=== PATIENT | female | born 1935 | race Caucasian/White ===

== ENCOUNTER 2020-11-15 14:38 | Inpatient (IN) ==
[2020-11-15] MEDS ORDERED: *HR* Atropine Sulfate 1 MG/10 ML SYRINGE IVP ONE (15:09)
[2020-11-15 15:26] LABS: Basophils # 0.1 K/mcL (0.0-0.2); Eosinophils # 0.3 K/mcL (0.0-0.6); Eosinophils % 3.3 %; Hematocrit 33.9 % (35.3-44.9); Hemoglobin 10.8 g/dL (11.5-15.4); Immature Granulocytes % 0.3 % (0-4); Lymphocytes # 1.7 K/mcL (0.6-4.6); Lymphocytes % 22.4 %; Mean Corpuscular HGB Conc 31.9 g/dL (31.6-35.5); Mean Corpuscular Hemoglobin 34.4 pg (28.0-33.3); Monocytes # 0.8 K/mcL (0.0-1.3); Monocytes % 10.1 %; Neutrophils # 4.8 K/mcL (1.6-8.9); Platelet Count 189 K/mcL (140-400); Red Blood Count 3.14 M/mcL (3.82-4.97); Red Cell Distribution Width 14.3 % (11.5-14.5); Segmented Neutrophils % 62.9 %; White Blood Count 7.7 K/mcL (4.3-11.1)
[2020-11-15] MEDS ORDERED: Ondansetron 4 MG/2 ML VIAL ONE (15:28)
[2020-11-15 15:46] LABS: Calcium 9.6 mg/dL (8.6-10.3); Magnesium 2.5 mg/dL (1.6-2.6); Potassium 4.6 mEq/L (3.5-5.1)
[2020-11-15 15:47] LABS: Troponin I 0.03 ng/mL (< 0.04)
[2020-11-15] MEDS ORDERED: Perflutren Lipid Microsphere 1.3 ML in 0.9 % Sodium Chloride 8.7 ML IVP PRN (15:49)
[2020-11-15 16:00] LABS: Thyroid Stimulating Hormone 3.678 mcIU/mL (0.340-5.600)
[2020-11-15 16:43] LABS: Prothrombin Time 11.4 Seconds (9.4-12.1)
[2020-11-15 16:46] LABS: Activated Partial Thrombo Time 29.2 Seconds (26.0-36.0)
[2020-11-15] MEDS ORDERED: Ringers Solution, Lactated 1,000 ML ONE (17:35)
[2020-11-15] MEDS ORDERED: Calcium Gluconate 1gm/50mL BAG IVPB ONE (17:45)
[2020-11-15] MEDS ORDERED: Ipratropium/Albuterol Neb 3 ML IH PRN (17:47)
[2020-11-15] MEDS ORDERED: Ondansetron 4 MG/2 ML VIAL IVP PRN (17:48)
[2020-11-15] MEDS ORDERED: Naloxone 0.4 MG/ML INJ IVP PRN ×2 (17:48→18:28)
[2020-11-15] MEDS ORDERED: Melatonin 3 MG TABLET PO PRN (17:48)
[2020-11-15] MEDS ORDERED: Acetaminophen 325 MG TABLET PO PRN (17:48)
[2020-11-15] MEDS ORDERED: *HR* OxyCODONE Immed Rel 5 MG TABLET PO PRN (17:48)
[2020-11-15] MEDS ORDERED: *HR* HYDROcodone/Acet 5/325 mg TABLET PO PRN (17:48)
[2020-11-15 18:09] LABS: ABG Base Excess -3 mEq/L (-2 to 3); ABG HCO3 23 mEq/L (21-27); ABG Oxygen Saturation 86 % (95-98); ABG PCO2 42 mmHg (35-45); ABG PH 7.34 pH Units (7.32-7.45); ABG PO2 55 mmHg (85-104); ABG TCO2 24 mEq/L (20-26)
[2020-11-15] MEDS ORDERED: Ringers Solution, Lactated 1,000 ML IVC SCH ×2 (18:30→21:00)
[2020-11-15] MEDS: Aspirin 325 MG TABLET PO SCH (19:39)
[2020-11-15] MEDS: levETIRAcetam 250 MG TABLET PO SCH (19:39)
[2020-11-15 20:36] LABS: Adenovirus Not Detected (Not Detect); Bordetella Pertussis Not Detected (Not Detect); Chlamydophila pneumoniae Not Detected (Not Detect); Coronavirus 229E Not Detected (Not Detect); Coronavirus HKU1 Not Detected (Not Detect); Coronavirus NL63 Not Detected (Not Detect); Coronavirus OC43 Not Detected (Not Detect); Human Metapneumovirus Not Detected (Not Detect); Human Rhinovirus/Enterovirus Not Detected (Not Detect); Influenza A Subtype 2009 H1 Not Detected (Not Detect); Influenza B Not Detected (Not Detect); Mycoplasma pneumoniae Not Detected (Not Detect); Parainfluenza Virus 1 Not Detected (Not Detect); Parainfluenza Virus 2 Not Detected (Not Detect); Parainfluenza Virus 3 Not Detected (Not Detect); Parainfluenza Virus 4 Not Detected (Not Detect); Respiratory Syncytial Virus Not Detected (Not Detect); SARS-CoV-2 Not Detected (Not Detect)
[2020-11-15] MEDS ORDERED: levETIRAcetam 250 MG TABLET PO SCH (21:00)
[2020-11-15 21:28] LABS: VBG Ionized Calcium 1.24 mmol/L (1.15-1.35)
[2020-11-15 21:46] LABS: Bacteria,Urine Few per hpf (None-Few); Bilirubin,Urine Negative (Negative); Blood,Urine Negative (Negative); Clarity,Urine Turbid (Clear); Color,Urine Yellow (Yellow); Glucose,Urine (UA) Normal (Normal); Hyaline Casts,Urine Moderate per lpf (None Seen); Ketones,Urine Negative (Negative); Leukocyte Esterase,Urine Negative (Negative); Mucus,Urine Few per lpf (None-Few); Nitrite,Urine Negative (Negative); Protein,Urine 30 mg/dL (Neg-Trace); RBC,Urine 0-3 per hpf (0-3); Specific Gravity,Urine 1.024 (1.010-1.025); Squamous Epithelial Cell,Urine Many per hpf (None-Few); Urobilinogen,Urine Normal (Normal); WBC,Urine 0-3 per hpf (0-3)
[2020-11-15] MEDS: Ipratropium/Albuterol Neb 3 ML IH SCH (22:17)
[2020-11-16] MEDS: Ipratropium/Albuterol Neb 3 ML IH SCH ×4 (04:53→21:10)
[2020-11-16] MEDS: levETIRAcetam 250 MG TABLET PO SCH ×2 (05:05→17:28)
[2020-11-16 05:48] LABS: Basophils # 0.1 K/mcL (0.0-0.2); Basophils % 0.5 %; Eosinophils # 0.2 K/mcL (0.0-0.6); Eosinophils % 1.8 %; Hematocrit 35.8 % (35.3-44.9); Hemoglobin 11.3 g/dL (11.5-15.4); Immature Granulocytes % 0.5 % (0-4); Lymphocytes # 1.5 K/mcL (0.6-4.6); Lymphocytes % 15.8 %; Mean Corpuscular HGB Conc 31.6 g/dL (31.6-35.5); Mean Corpuscular Hemoglobin 33.6 pg (28.0-33.3); Mean Corpuscular Volume 106.5 fL (83.0-100.0); Mean Platelet Volume 11.9 fL (9.4-12.4); Monocytes # 1.1 K/mcL (0.0-1.3); Monocytes % 11.9 %; Neutrophils # 6.5 K/mcL (1.6-8.9); Platelet Count 142 K/mcL (140-400); Red Blood Count 3.36 M/mcL (3.82-4.97); Red Cell Distribution Width 13.8 % (11.5-14.5); Segmented Neutrophils % 69.5 %; White Blood Count 9.4 K/mcL (4.3-11.1)
[2020-11-16 05:51] LABS: VBG Ionized Calcium 1.15 mmol/L (1.15-1.35)
[2020-11-16 05:57] LABS: Prothrombin Time 11.4 Seconds (9.4-12.1)
[2020-11-16 06:08] LABS: Albumin 3.7 g/dL (3.5-5.7); Albumin/Globulin Ratio 1.6 (1.1-2.2); Bilirubin,Total 0.5 mg/dL (0.3-1.0); Calcium 9.2 mg/dL (8.6-10.3); Globulin 2.3 g/dL (2.4-3.5); Magnesium 2.3 mg/dL (1.6-2.6); Phosphorous 4.4 mg/dL (2.7-4.5)
[2020-11-16 06:10] LABS: % Iron Saturation 38 % (15-50); Iron 115 mcg/dL (50-170); Transferrin 217 mg/dL (203-362)
[2020-11-16 06:24] LABS: Folate > 22.3 ng/mL (3.0-16.0); Vitamin B12 841 pg/mL (250-1100)
[2020-11-16 06:27] LABS: Ferritin 59 ng/mL (10-120)
[2020-11-16] MEDS ORDERED: Cholecalciferol (D-3) 1,000 UNIT (25MCG) TABLET PO SCH (09:00)
[2020-11-16] MEDS ORDERED: Niacin (24 HR) 500 MG TAB.ER.24H PO SCH (09:00)
[2020-11-16] MEDS ORDERED: Multivit/Ca/Min/Fe/FA 1 TAB TABLET PO SCH (09:00)
[2020-11-16] MEDS: Aspirin 325 MG TABLET PO SCH ×2 (09:04→20:05)
[2020-11-16 13:28] LABS: VBG Ionized Calcium 1.21 mmol/L (1.15-1.35)
[2020-11-16 13:45] LABS: Calcium 9.1 mg/dL (8.6-10.3); Magnesium 2.3 mg/dL (1.6-2.6); Potassium 4.4 mEq/L (3.5-5.1)
[2020-11-16] MEDS ORDERED: *HR* Heparin 5,000 UNIT/ML VIAL SQ SCH (14:00)
[2020-11-16] MEDS: hydrALAZINE 25 MG TABLET PO SCH ×3 (15:08→23:59)
[2020-11-16] MEDS ORDERED: Melatonin 3 MG TABLET PO PRN (18:30)
[2020-11-16] MEDS ORDERED: Ondansetron 4 MG/2 ML VIAL IVP PRN (18:30)
[2020-11-16] MEDS ORDERED: Acetaminophen 325 MG TABLET PO PRN (18:30)
[2020-11-16] MEDS ORDERED: *HR* OxyCODONE Immed Rel 5 MG TABLET PO PRN (18:30)
[2020-11-16] MEDS ORDERED: *HR* HYDROcodone/Acet 5/325 mg TABLET PO PRN (18:30)
[2020-11-16] MEDS ORDERED: Naloxone 0.4 MG/ML INJ IVP PRN (18:30)
[2020-11-16] MEDS ORDERED: Ipratropium/Albuterol Neb 3 ML IH PRN (18:30)
[2020-11-16] MEDS: Pregabalin 25 MG CAPSULE PO SCH (20:05)
[2020-11-16] MEDS: *HR* Heparin 5,000 UNIT/ML VIAL SQ SCH (21:01)
[2020-11-17 02:01] LABS: Basophils # 0.1 K/mcL (0.0-0.2); Basophils % 0.9 %; Eosinophils # 0.3 K/mcL (0.0-0.6); Eosinophils % 4.3 %; Hematocrit 31.5 % (35.3-44.9); Immature Granulocytes % 0.9 % (0-4); Lymphocytes % 13.8 %; Mean Corpuscular HGB Conc 31.7 g/dL (31.6-35.5); Mean Corpuscular Hemoglobin 33.9 pg (28.0-33.3); Mean Corpuscular Volume 106.8 fL (83.0-100.0); Mean Platelet Volume 10.8 fL (9.4-12.4); Monocytes # 0.6 K/mcL (0.0-1.3); Monocytes % 9.1 %; Platelet Count 153 K/mcL (140-400); Red Blood Count 2.95 M/mcL (3.82-4.97); Red Cell Distribution Width 13.9 % (11.5-14.5)
[2020-11-17 02:10] LABS: VBG Ionized Calcium 1.19 mmol/L (1.15-1.35)
[2020-11-17 02:21] LABS: Albumin 3.4 g/dL (3.5-5.7); Albumin/Globulin Ratio 1.6 (1.1-2.2); Bilirubin,Total 0.3 mg/dL (0.3-1.0); Calcium 8.8 mg/dL (8.6-10.3); Globulin 2.1 g/dL (2.4-3.5); Magnesium 2.2 mg/dL (1.6-2.6); Potassium 4.2 mEq/L (3.5-5.1); Total Protein 5.5 g/dL (6.4-8.9)
[2020-11-17] MEDS: Ipratropium/Albuterol Neb 3 ML IH SCH ×4 (03:22→21:48)
[2020-11-17] MEDS: *HR* Heparin 5,000 UNIT/ML VIAL SQ SCH ×3 (06:12→22:34)
[2020-11-17] MEDS: levETIRAcetam 250 MG TABLET PO SCH ×2 (06:12→16:51)
[2020-11-17] MEDS: Cholecalciferol (D-3) 1,000 UNIT (25MCG) TABLET PO SCH (08:04)
[2020-11-17] MEDS: Pregabalin 25 MG CAPSULE PO SCH ×2 (08:04→22:33)
[2020-11-17] MEDS: Multivit/Ca/Min/Fe/FA 1 TAB TABLET PO SCH (08:04)
[2020-11-17] MEDS: Aspirin 325 MG TABLET PO SCH ×2 (08:05→22:34)
[2020-11-17] MEDS: hydrALAZINE 25 MG TABLET PO SCH ×2 (08:05→16:51)
[2020-11-17] MEDS: Niacin (24 HR) 500 MG TAB.ER.24H PO SCH (08:05)
[2020-11-17] MEDS ORDERED: Furosemide 20 MG/2 ML VIAL IVP ONE (11:45)
[2020-11-17] MEDS: amLODIPine 5 MG TABLET PO SCH (11:46)
[2020-11-18] MEDS: hydrALAZINE 25 MG TABLET PO SCH ×2 (00:02→08:30)
[2020-11-18] MEDS: Ipratropium/Albuterol Neb 3 ML IH SCH ×2 (03:51→10:33)
[2020-11-18] MEDS: *HR* Heparin 5,000 UNIT/ML VIAL SQ SCH (06:07)
[2020-11-18] MEDS: levETIRAcetam 250 MG TABLET PO SCH (06:07)
[2020-11-18 07:04] LABS: VBG Ionized Calcium 1.18 mmol/L (1.15-1.35)
[2020-11-18 07:09] LABS: Basophils # 0.1 K/mcL (0.0-0.2); Eosinophils # 0.4 K/mcL (0.0-0.6); Hemoglobin 10.5 g/dL (11.5-15.4); Immature Granulocytes % 0.4 % (0-4); Lymphocytes # 0.8 K/mcL (0.6-4.6); Lymphocytes % 16.6 %; Mean Corpuscular HGB Conc 32.8 g/dL (31.6-35.5); Mean Corpuscular Hemoglobin 34.7 pg (28.0-33.3); Mean Corpuscular Volume 105.6 fL (83.0-100.0); Mean Platelet Volume 11.2 fL (9.4-12.4); Monocytes # 0.6 K/mcL (0.0-1.3); Monocytes % 11.8 %; Neutrophils # 3.2 K/mcL (1.6-8.9); Platelet Count 182 K/mcL (140-400); Red Blood Count 3.03 M/mcL (3.82-4.97); Red Cell Distribution Width 13.8 % (11.5-14.5); Segmented Neutrophils % 63.2 %
[2020-11-18 07:50] LABS: Albumin 3.3 g/dL (3.5-5.7); Albumin/Globulin Ratio 1.4 (1.1-2.2); Bilirubin,Total 0.4 mg/dL (0.3-1.0); Calcium 8.5 mg/dL (8.6-10.3); Globulin 2.3 g/dL (2.4-3.5); Phosphorous 2.9 mg/dL (2.7-4.5); Potassium 4.1 mEq/L (3.5-5.1); Total Protein 5.6 g/dL (6.4-8.9)
[2020-11-18] MEDS: Cholecalciferol (D-3) 1,000 UNIT (25MCG) TABLET PO SCH (08:30)
[2020-11-18] MEDS: Pregabalin 25 MG CAPSULE PO SCH (08:30)
[2020-11-18] MEDS: amLODIPine 5 MG TABLET PO SCH (08:30)
[2020-11-18] MEDS: Multivit/Ca/Min/Fe/FA 1 TAB TABLET PO SCH (08:30)
[2020-11-18] MEDS: Niacin (24 HR) 500 MG TAB.ER.24H PO SCH (08:31)
[2020-11-18] MEDS: Aspirin 325 MG TABLET PO SCH (08:31)
[2020-11-18 10:42] VITALS: BP 168/68
== END 2020-11-18 13:43 | disposition home or self-care (01) | DRG 308 ==
LOC: SUATTDRO → EMEROOARM 14:38 → SUATTDRO 18:07 → 2NNU 18:07 → ICNU 18:18 → 2NENU 11-16 22:44
PROVIDERS: ADMIT Internal Medicine; ATTEND Internal Medicine

== ENCOUNTER 2022-01-25 17:18 | Inpatient (IN) ==
[2022-01-25 18:05] LABS: Basophils # 0.1 K/mcL (0.0-0.2); Basophils % 0.6 %; Eosinophils # 0.2 K/mcL (0.0-0.6); Eosinophils % 2.8 %; Hematocrit 37.9 % (35.3-44.9); Hemoglobin 12.4 g/dL (11.5-15.4); Immature Granulocytes % 0.4 % (0-4); Lymphocytes # 1.4 K/mcL (0.6-4.6); Lymphocytes % 16.4 %; Mean Corpuscular HGB Conc 32.7 g/dL (31.6-35.5); Mean Corpuscular Hemoglobin 32.6 pg (28.0-33.3); Mean Corpuscular Volume 99.7 fL (83.0-100.0); Mean Platelet Volume 10.9 fL (9.4-12.4); Monocytes # 0.7 K/mcL (0.0-1.3); Neutrophils # 5.8 K/mcL (1.6-8.9); Platelet Count 228 K/mcL (140-400); Red Cell Distribution Width 13.6 % (11.5-14.5); Segmented Neutrophils % 70.8 %; White Blood Count 8.2 K/mcL (4.3-11.1)
[2022-01-25] MEDS ORDERED: Dexamethasone Sodium Phos/PF 10 MG/ML VIAL IVP ONE (18:15)
[2022-01-25 18:55] LABS: BUN/Creatinine Ratio 18 (6-26); Blood Urea Nitrogen 25 mg/dL (8-23); Calcium 9.9 mg/dL (8.6-10.3); Carbon Dioxide 28 mEq/L (23-29); Chloride 104 mEq/L (98-107); Glucose 124 mg/dL (70-105); Osmolality,Calculated 300 (280-300); Potassium 4.1 mEq/L (3.5-5.1); Sodium 142 mEq/L (136-145); Troponin I < 0.03 ng/mL (< 0.04)
[2022-01-25] MEDS ORDERED: *HR* Labetalol 20 MG/4 ML SYRINGE IVP ONE (19:48)
[2022-01-25] MEDS ORDERED: Acetaminophen 325 MG TABLET PO PRN (20:14)
[2022-01-25] MEDS ORDERED: Naloxone 0.4 MG/ML INJ IVP PRN (20:14)
[2022-01-25] MEDS ORDERED: Ondansetron 4 MG/2 ML VIAL IVP PRN (20:14)
[2022-01-25] MEDS ORDERED: Pregabalin 25 MG CAPSULE PO ONE (21:09)
[2022-01-25 21:41] LABS: Bilirubin,Urine Negative (Negative); Blood,Urine Negative (Negative); Clarity,Urine Clear (Clear); Color,Urine Yellow (Yellow); Glucose,Urine (UA) Normal (Normal); Ketones,Urine Negative (Negative); Leukocyte Esterase,Urine Negative (Negative); Nitrite,Urine Negative (Negative); PH,Urine 6.5 pH Units (5.0-8.0); Protein,Urine Trace mg/dL (Neg-Trace); Specific Gravity,Urine 1.016 (1.010-1.025); Urobilinogen,Urine Normal (Normal)
[2022-01-25] MEDS: Ipratropium 1 PUFF INHALER IH SCH (22:36)
[2022-01-25] MEDS: *HR* Heparin 5,000 UNIT/ML VIAL SQ SCH (22:46)
[2022-01-25] MEDS: levETIRAcetam 250 MG TABLET PO SCH (22:46)
[2022-01-25] MEDS: Aspirin 81 MG TAB.CHEW PO SCH (22:54)
[2022-01-26] MEDS: niCARdipine 20 MG/200 ML MLS IVC SCH ×7 (00:33→23:04)
[2022-01-26 02:33] LABS: VBG HCO3 25 mEq/L (21-27); VBG PCO2 33 mmHg (41-51); VBG PH 7.48 pH Units (7.32-7.42); VBG PO2 144 mmHg (25-50)
[2022-01-26 02:38] LABS: Red Blood Count 3.47 M/mcL (3.82-4.97); White Blood Count 9.3 K/mcL (4.3-11.1)
[2022-01-26 02:39] LABS: Basophils % 0.3 %; Eosinophils % 0.1 %; Hemoglobin 11.3 g/dL (11.5-15.4); Immature Granulocytes % 0.6 % (0-4); Lymphocytes # 0.6 K/mcL (0.6-4.6); Lymphocytes % 6.8 %; Mean Corpuscular HGB Conc 33.2 g/dL (31.6-35.5); Mean Corpuscular Hemoglobin 32.6 pg (28.0-33.3); Mean Platelet Volume 10.8 fL (9.4-12.4); Monocytes # 0.1 K/mcL (0.0-1.3); Monocytes % 0.6 %; Neutrophils # 8.5 K/mcL (1.6-8.9); Platelet Count 235 K/mcL (140-400); Red Cell Distribution Width 13.4 % (11.5-14.5); Segmented Neutrophils % 91.6 %
[2022-01-26 03:00] LABS: Albumin 3.8 g/dL (3.5-5.7); Albumin/Globulin Ratio 1.2 (1.1-2.2); Bilirubin,Direct 0.1 mg/dL (0.0-0.2); Bilirubin,Indirect 0.2 mg/dL (0.0-1.0); Bilirubin,Total 0.3 mg/dL (0.3-1.0); Calcium 9.3 mg/dL (8.6-10.3); Globulin 3.1 g/dL (2.4-3.5); Magnesium 2.3 mg/dL (1.6-2.6); Potassium 3.5 mEq/L (3.5-5.1); Total Protein 6.9 g/dL (6.4-8.9)
[2022-01-26] MEDS: Ipratropium 1 PUFF INHALER IH SCH ×4 (04:11→21:54)
[2022-01-26] MEDS ORDERED: Remdesivir 200 MG in 0.9 % Sodium Chloride 100 ML IVPB ONE (05:00)
[2022-01-26] MEDS: *HR* Heparin 5,000 UNIT/ML VIAL SQ SCH ×3 (05:17→20:10)
[2022-01-26] MEDS: levETIRAcetam 250 MG TABLET PO SCH ×2 (07:59→20:10)
[2022-01-26] MEDS: Aspirin 81 MG TAB.CHEW PO SCH (07:59)
[2022-01-26] MEDS: Azithromycin 250 MG TABLET PO SCH (07:59)
[2022-01-26] MEDS: amLODIPine 5 MG TABLET PO SCH (07:59)
[2022-01-26] MEDS: Pregabalin 50 MG CAPSULE PO SCH (07:59)
[2022-01-26] MEDS: hydrALAZINE 25 MG TABLET PO SCH ×2 (17:22→23:43)
[2022-01-26] MEDS: Pregabalin 25 MG CAPSULE PO SCH (20:09)
[2022-01-27 03:10] LABS: Basophils % 0.2 %; Hematocrit 32.6 % (35.3-44.9); Hemoglobin 10.5 g/dL (11.5-15.4); Immature Granulocytes % 0.7 % (0-4); Lymphocytes # 0.7 K/mcL (0.6-4.6); Lymphocytes % 6.3 %; Mean Corpuscular HGB Conc 32.2 g/dL (31.6-35.5); Mean Corpuscular Volume 99.4 fL (83.0-100.0); Mean Platelet Volume 11.1 fL (9.4-12.4); Monocytes # 0.7 K/mcL (0.0-1.3); Monocytes % 6.9 %; Platelet Count 265 K/mcL (140-400); Red Blood Count 3.28 M/mcL (3.82-4.97); Red Cell Distribution Width 13.5 % (11.5-14.5); Segmented Neutrophils % 85.9 %; White Blood Count 10.5 K/mcL (4.3-11.1)
[2022-01-27 03:30] LABS: Calcium 9.4 mg/dL (8.6-10.3); Magnesium 2.5 mg/dL (1.6-2.6); Phosphorous 3.2 mg/dL (2.7-4.5); Potassium 3.6 mEq/L (3.5-5.1)
[2022-01-27 03:31] LABS: Albumin 3.5 g/dL (3.5-5.7); Albumin/Globulin Ratio 1.3 (1.1-2.2); Bilirubin,Indirect 0.3 mg/dL (0.0-1.0); Bilirubin,Total 0.3 mg/dL (0.3-1.0); Globulin 2.8 g/dL (2.4-3.5); Total Protein 6.3 g/dL (6.4-8.9)
[2022-01-27] MEDS: Ipratropium 1 PUFF INHALER IH SCH ×4 (03:49→22:41)
[2022-01-27] MEDS: Remdesivir 100 MG in 0.9 % Sodium Chloride 100 ML IVPB SCH (06:22)
[2022-01-27] MEDS: *HR* Heparin 5,000 UNIT/ML VIAL SQ SCH ×3 (06:22→20:45)
[2022-01-27] MEDS: niCARdipine 20 MG/200 ML MLS IVC SCH ×3 (07:35→13:15)
[2022-01-27] MEDS: Aspirin 81 MG TAB.CHEW PO SCH (08:24)
[2022-01-27] MEDS: Lactobacillus 1 EACH CAP.SPRINK PO SCH (08:24)
[2022-01-27] MEDS: Ascorbic Acid 500 MG TABLET PO SCH (08:25)
[2022-01-27] MEDS: Furosemide 20 MG TABLET PO SCH (08:25)
[2022-01-27] MEDS: Azithromycin 250 MG TABLET PO SCH (08:25)
[2022-01-27] MEDS: Pregabalin 50 MG CAPSULE PO SCH (08:25)
[2022-01-27] MEDS: amLODIPine 5 MG TABLET PO SCH (08:26)
[2022-01-27] MEDS: Benzonatate 100 MG CAPSULE PO PRN (08:26)
[2022-01-27] MEDS: Cholecalciferol (D-3) 1,000 UNIT (25MCG) TABLET PO SCH (08:26)
[2022-01-27] MEDS: levETIRAcetam 250 MG TABLET PO SCH ×2 (08:26→19:58)
[2022-01-27] MEDS: hydrALAZINE 25 MG TABLET PO SCH ×3 (08:27→23:56)
[2022-01-27] MEDS ORDERED: Pregabalin 25 MG CAPSULE PO SCH ×2 (09:00→21:00)
[2022-01-27] MEDS: Pregabalin 25 MG CAPSULE PO SCH (19:58)
[2022-01-28] MEDS: niCARdipine 20 MG/200 ML MLS IVC SCH ×3 (00:18→03:37)
[2022-01-28] MEDS: Ipratropium 1 PUFF INHALER IH SCH ×3 (04:21→16:01)
[2022-01-28] MEDS: Remdesivir 100 MG in 0.9 % Sodium Chloride 100 ML IVPB SCH (04:39)
[2022-01-28] MEDS: *HR* Heparin 5,000 UNIT/ML VIAL SQ SCH ×2 (04:40→13:45)
[2022-01-28 06:36] LABS: Albumin 3.4 g/dL (3.5-5.7); Albumin/Globulin Ratio 1.4 (1.1-2.2); Bilirubin,Direct 0.1 mg/dL (0.0-0.2); Bilirubin,Indirect 0.1 mg/dL (0.0-1.0); Bilirubin,Total 0.2 mg/dL (0.3-1.0); Globulin 2.4 g/dL (2.4-3.5); Magnesium 2.3 mg/dL (1.6-2.6); Phosphorous 4.1 mg/dL (2.7-4.5); Potassium 4.1 mEq/L (3.5-5.1); Total Protein 5.8 g/dL (6.4-8.9)
[2022-01-28 07:44] VITALS: O2SAT 94
[2022-01-28] MEDS: levETIRAcetam 250 MG TABLET PO SCH (08:39)
[2022-01-28] MEDS: Azithromycin 250 MG TABLET PO SCH (08:39)
[2022-01-28] MEDS: Aspirin 81 MG TAB.CHEW PO SCH (08:39)
[2022-01-28] MEDS: Lactobacillus 1 EACH CAP.SPRINK PO SCH (08:39)
[2022-01-28] MEDS: Cholecalciferol (D-3) 1,000 UNIT (25MCG) TABLET PO SCH (08:39)
[2022-01-28] MEDS: Ascorbic Acid 500 MG TABLET PO SCH (08:40)
[2022-01-28] MEDS: amLODIPine 5 MG TABLET PO SCH (08:40)
[2022-01-28] MEDS: hydrALAZINE 25 MG TABLET PO SCH ×2 (08:40→16:55)
[2022-01-28] MEDS: Furosemide 20 MG TABLET PO SCH (08:40)
[2022-01-28] MEDS: Pregabalin 50 MG CAPSULE PO SCH (10:11)
[2022-01-28] MEDS: Benzonatate 100 MG CAPSULE PO PRN (11:07)
[2022-01-28 11:14] VITALS: BP 166/51; PULSE 63; TEMP 97.7
== END 2022-01-28 17:05 | disposition home health service (06) | DRG 177 ==
LOC: EMEROOARM 17:18 → 3BNU 17:18 → SUATTDRO 19:55 → 3BNU 20:35 → 2NNU 01-26 00:53
PROVIDERS: ADMIT Student in an Organized Health Care Education/Training Program; ATTEND Internal Medicine

== ENCOUNTER 2022-02-20 22:52 | Observation (INO) ==
[2022-02-21 00:03] LABS: Basophils % 0.5 %; Eosinophils # 0.3 K/mcL (0.0-0.6); Eosinophils % 5.2 %; Hematocrit 21.1 % (35.3-44.9); Hemoglobin 6.4 g/dL (11.5-15.4); Immature Granulocytes % 0.5 % (0-4); Lymphocytes # 1.3 K/mcL (0.6-4.6); Lymphocytes % 19.3 %; Mean Corpuscular HGB Conc 30.3 g/dL (31.6-35.5); Mean Corpuscular Hemoglobin 32.3 pg (28.0-33.3); Monocytes # 0.9 K/mcL (0.0-1.3); Monocytes % 13.4 %; Platelet Count 483 K/mcL (140-400); Red Blood Count 1.98 M/mcL (3.82-4.97); Red Cell Distribution Width 16.1 % (11.5-14.5); Segmented Neutrophils % 61.1 %; White Blood Count 6.6 K/mcL (4.3-11.1)
[2022-02-21 00:07] LABS: Mean Corpuscular Volume 106.6 fL (83.0-100.0)
[2022-02-21 00:16] LABS: Albumin 3.6 g/dL (3.5-5.7); Albumin/Globulin Ratio 1.5 (1.1-2.2); Bilirubin,Indirect 0.2 mg/dL (0.0-1.0); Bilirubin,Total 0.2 mg/dL (0.3-1.0); Calcium 8.8 mg/dL (8.6-10.3); Globulin 2.4 g/dL (2.4-3.5); Potassium 4.8 mEq/L (3.5-5.1)
[2022-02-21 00:26] LABS: Activated Partial Thrombo Time 30.3 Seconds (26.0-36.0)
[2022-02-21 00:38] LABS: Immature Reticulocyte % 31.6 % (11.0-38.0); Retculocyte # 0.14 M/mcL (0.05-0.10); Reticulocyte % 7.3 % (1.6-2.8)
[2022-02-21] MEDS ORDERED: 0.9 % Sodium Chloride 250 ML ONE (01:06)
[2022-02-21] MEDS ORDERED: Naloxone 0.4 MG/ML INJ IVP PRN (02:38)
[2022-02-21] MEDS ORDERED: Ondansetron ODT 4 MG TAB.RAPDIS SL PRN (02:38)
[2022-02-21] MEDS ORDERED: Melatonin 3 MG TABLET PO PRN (02:38)
[2022-02-21] MEDS ORDERED: Ringers Solution, Lactated 1,000 ML IVC SCH ×2 (02:45→04:00)
[2022-02-21] MEDS: Pantoprazole 40 MG VIAL IVP SCH ×2 (04:07→17:20)
[2022-02-21 05:36] LABS: Hematocrit 23.4 % (35.3-44.9); Hemoglobin 7.1 g/dL (11.5-15.4); Mean Corpuscular HGB Conc 30.3 g/dL (31.6-35.5); Mean Corpuscular Hemoglobin 30.5 pg (28.0-33.3); Platelet Count 433 K/mcL (140-400); Red Blood Count 2.33 M/mcL (3.82-4.97); Red Cell Distribution Width 17.8 % (11.5-14.5); White Blood Count 5.4 K/mcL (4.3-11.1)
[2022-02-21 05:40] LABS: Mean Corpuscular Volume 100.4 fL (83.0-100.0)
[2022-02-21 05:51] LABS: Calcium 8.7 mg/dL (8.6-10.3); Magnesium 2.3 mg/dL (1.6-2.6); Phosphorous 3.7 mg/dL (2.7-4.5); Potassium 4.4 mEq/L (3.5-5.1)
[2022-02-21 06:01] LABS: Albumin 3.4 g/dL (3.5-5.7); Albumin/Globulin Ratio 1.6 (1.1-2.2); Bilirubin,Indirect 0.4 mg/dL (0.0-1.0); Bilirubin,Total 0.4 mg/dL (0.3-1.0); Globulin 2.1 g/dL (2.4-3.5); Total Protein 5.5 g/dL (6.4-8.9)
[2022-02-21 06:07] LABS: Thyroid Stimulating Hormone 3.762 mcIU/mL (0.340-5.600)
[2022-02-21 06:19] LABS: Folate > 22.3 ng/mL (3.0-16.0); Vitamin B12 899 pg/mL (250-1100)
[2022-02-21] MEDS: levETIRAcetam 250 MG TABLET PO SCH ×2 (10:31→20:36)
[2022-02-21] MEDS: amLODIPine 5 MG TABLET PO SCH (10:31)
[2022-02-21] MEDS: Pregabalin 25 MG CAPSULE PO SCH ×2 (10:31→20:34)
[2022-02-21] MEDS: Iron Sucrose Complex 200 MG in 0.9 % Sodium Chloride 100 ML IVPB SCH (10:32)
[2022-02-21 11:09] LABS: Hematocrit 25.9 % (35.3-44.9); Hemoglobin 8.3 g/dL (11.5-15.4)
[2022-02-21] MEDS ORDERED: Lidocaine -MPF 2% 2 ML VIAL ONE ×2 (12:19)
[2022-02-21] MEDS ORDERED: *HR* Propofol 200 MG/20 ML VIAL IVP ONE (12:19)
[2022-02-21 15:57] LABS: Bilirubin,Urine Negative (Negative); Blood,Urine Negative (Negative); Clarity,Urine Clear (Clear); Color,Urine Light-Yellow (Yellow); Glucose,Urine (UA) Normal (Normal); Ketones,Urine Negative (Negative); Leukocyte Esterase,Urine Negative (Negative); Nitrite,Urine Negative (Negative); PH,Urine 7.5 pH Units (5.0-8.0); Protein,Urine Negative (Neg-Trace); Specific Gravity,Urine 1.011 (1.010-1.025); Urobilinogen,Urine Normal (Normal)
[2022-02-22 04:28] LABS: Basophils # 0.1 K/mcL (0.0-0.2); Eosinophils # 0.4 K/mcL (0.0-0.6); Eosinophils % 5.8 %; Hematocrit 25.1 % (35.3-44.9); Hemoglobin 7.7 g/dL (11.5-15.4); Immature Granulocytes % 0.7 % (0-4); Lymphocytes # 1.1 K/mcL (0.6-4.6); Lymphocytes % 18.8 %; Mean Corpuscular HGB Conc 30.7 g/dL (31.6-35.5); Mean Corpuscular Hemoglobin 30.6 pg (28.0-33.3); Mean Corpuscular Volume 99.6 fL (83.0-100.0); Mean Platelet Volume 10.1 fL (9.4-12.4); Monocytes # 0.7 K/mcL (0.0-1.3); Neutrophils # 3.8 K/mcL (1.6-8.9); Platelet Count 467 K/mcL (140-400); Red Blood Count 2.52 M/mcL (3.82-4.97); Red Cell Distribution Width 17.5 % (11.5-14.5); Segmented Neutrophils % 62.7 %
[2022-02-22 04:41] LABS: Calcium 8.9 mg/dL (8.6-10.3)
[2022-02-22] MEDS: Pantoprazole 40 MG VIAL IVP SCH ×2 (05:32→17:14)
[2022-02-22] MEDS: levETIRAcetam 250 MG TABLET PO SCH ×2 (09:36→20:43)
[2022-02-22] MEDS: Pregabalin 25 MG CAPSULE PO SCH ×2 (09:37→20:43)
[2022-02-22] MEDS: amLODIPine 5 MG TABLET PO SCH (09:37)
[2022-02-22] MEDS: Iron Sucrose Complex 200 MG in 0.9 % Sodium Chloride 100 ML IVPB SCH (09:38)
[2022-02-22 13:02] LABS: Hematocrit 26.8 % (35.3-44.9); Hemoglobin 8.4 g/dL (11.5-15.4)
[2022-02-23 04:41] LABS: Basophils # 0.1 K/mcL (0.0-0.2); Basophils % 1.2 %; Eosinophils # 0.4 K/mcL (0.0-0.6); Eosinophils % 7.5 %; Hematocrit 25.9 % (35.3-44.9); Hemoglobin 8.1 g/dL (11.5-15.4); Lymphocytes # 0.9 K/mcL (0.6-4.6); Lymphocytes % 18.7 %; Mean Corpuscular HGB Conc 31.3 g/dL (31.6-35.5); Mean Corpuscular Hemoglobin 31.3 pg (28.0-33.3); Mean Platelet Volume 9.7 fL (9.4-12.4); Monocytes # 0.6 K/mcL (0.0-1.3); Monocytes % 12.2 %; Neutrophils # 2.9 K/mcL (1.6-8.9); Nucleated Red Blood Cells 0.4 /100 WBC (0); Platelet Count 406 K/mcL (140-400); Red Blood Count 2.59 M/mcL (3.82-4.97); Red Cell Distribution Width 17.1 % (11.5-14.5); Segmented Neutrophils % 59.4 %; White Blood Count 4.9 K/mcL (4.3-11.1)
[2022-02-23 05:03] LABS: Calcium 8.8 mg/dL (8.6-10.3)
[2022-02-23] MEDS: Pantoprazole 40 MG VIAL IVP SCH (05:30)
[2022-02-23] MEDS: levETIRAcetam 250 MG TABLET PO SCH (08:31)
[2022-02-23] MEDS: amLODIPine 5 MG TABLET PO SCH (08:31)
[2022-02-23] MEDS: Pregabalin 25 MG CAPSULE PO SCH (08:31)
[2022-02-23 10:36] VITALS: BP 155/53; PULSE 66; TEMP 97.6; O2SAT 97
[2022-02-23] MEDS ORDERED: NON-FORMULARY MEDICATION 1 EACH EACH (Albuterol Sulfate 8.5 GM Hfa.Aer.Ad) IH PRN (12:45)
[2022-02-23] MEDS ORDERED: Patient Taking Own Medication 1 EACH PO SCH (21:00)
[2022-02-24] MEDS ORDERED: Furosemide 20 MG TABLET PO SCH (09:00)
[2022-02-24] MEDS ORDERED: [UNRECOGNIZED DRUG - OTHER] PO SCH (09:00)
[2022-02-24] MEDS ORDERED: EPA PO SCH (09:00)
[2022-02-24] MEDS ORDERED: Vitamin B Complex/Vit C/Vit E 1 EACH TABLET PO SCH (09:00)
[2022-02-24] MEDS ORDERED: Lactobacillus 1 EACH CAP.SPRINK PO SCH (09:00)
[2022-02-24] MEDS ORDERED: AST PO SCH (09:00)
[2022-02-24] MEDS ORDERED: PHOSPHO PO SCH (09:00)
[2022-02-24] MEDS ORDERED: NON-FORMULARY MEDICATION 1 EACH EACH (Amlodipine Besylate 10 MG Tablet) PO SCH (09:00)
[2022-02-24] MEDS ORDERED: Ascorbic Acid 500 MG TABLET PO SCH (09:00)
[2022-02-24] MEDS ORDERED: [UNRECOGNIZED DRUG - OTHER] PO SCH (09:00)
[2022-02-24] MEDS ORDERED: Multivit/Ca/Min/Fe/FA 1 TAB TABLET PO SCH (09:00)
[2022-02-24] MEDS ORDERED: NON-FORMULARY MEDICATION 1 EACH EACH (Pantoprazole Sodium [Protonix] 40 MG Tablet.Dr) PO SCH (09:00)
[2022-02-24] MEDS ORDERED: DHA PO SCH (09:00)
[2022-02-24] MEDS ORDERED: KRILL PO SCH (09:00)
[2022-02-24] MEDS ORDERED: Cholecalciferol (D-3) 1,000 UNIT (25MCG) TABLET PO SCH (09:00)
== END 2022-02-23 14:37 | disposition home or self-care (01) ==
LOC: EMEROOARM 22:52 → 2NENU 22:52 → SUATTDRO 02-21 02:42 → 2NENU 02-21 03:26
PROVIDERS: ADMIT Internal Medicine; ATTEND Internal Medicine